=== PATIENT | male | born 1960 | race Caucasian/White ===

== ENCOUNTER 2018-03-25 06:14 | Observation (INO) | payer BC ==
[2018-03-25] MEDS ORDERED: Diphtheria,Pertussis(Acell),Tetanus Vaccine 0.5 ML Syringe IM ONE (06:23)
[2018-03-25] MEDS ORDERED: Sodium Chloride 0.9% 1,000 ML IV ONE ×3 (06:23→09:14)
[2018-03-25] MEDS ORDERED: Bacitracin Oint 1 GM U/D Packet TOP ONE (06:23)
[2018-03-25] MEDS ORDERED: Sodium Chloride 0.9% 10 ML Syringe FLUSH PRN (06:24)
[2018-03-25] MEDS ORDERED: Sodium Chloride 0.9% 2.5 ML Syringe FLUSH PRN (06:24)
--- NOTE | 2018-03-25 06:34 | EDM.PDOC ---
ED HPI GENERAL MEDICAL PROBLEM - General Stated Complaint: INTOXICATED, MULTIPLE LACERATIONS Time Seen by Provider: 03/25/18 06:22 - History of Present Illness INITIAL COMMENTS - FREE TEXT/NARRATIVE: HISTORY AND PHYSICAL: History of present illness: Patient is a 57-year-old male who denies any pre-existing medical problems but does to admit to drinking several times a week and drinking more heavily this evening and arrives via EMS after a fall on the sidewalk and being found outside. The patient says he doesn't recall how he fell and EMS and police reported to us that he was found on a sidewalk outside of his home. The patient has no recall of the events but says he did drink more than he usually does this evening. He has no complaints of any head pain extremity complaints chest pain shortness of breath abdominal pain nausea or vomiting. He has no neck or back pain. The patient denies any headache pain and says he does occasionally smoke pot but doesn't use any other street drugs. The police state that they do not feel he was outside for long as they frequently do trips in the area in which he was found and the patient is also unsure of how long he has been outside. Patient does answer simple questions and follow commands but is not very talkative. Patient arrives in a c-collar and backboard. More complete account of car's events is unavailable as the patient has no recall but he states that he has no active systemic problems or medical issues. Review of systems: As per history of present illness and below otherwise all systems reviewed and negative. Past medical history: As per history of present illness and as reviewed below otherwise noncontributory. Surgical history: As per history of present illness and as reviewed below otherwise noncontributory. Social history: No reported history of drug or alcohol abuse. Family history: As per history of present illness and as reviewed below otherwise noncontributory. Physical exam: General: Well-developed well-nourished man who is nontoxic and vital signs are noted by me. His trunk is warm but his hands and forearms bilateral legs and feet are very cold to touch and his clothes are also wet. He is moving all extremities and follows commands and is maintaining his airway. There is a smell of alcohol on his breath. Throughout the course of my exam the c-collar was maintained with the backboard was removed. It was noted by nursing during the removal of the patient's clothing that there was urine soaking his pants. HEENT: normocephalic, there are no palpable scalp deformities but there is an abrasion/in constitution appreciated at the left occipital parietal area without laceration and no tenderness in this region, pupils reactive, EOMs intact, negative for conjunctival pallor or scleral icterus, mucous membranes moist, throat clear, neck supple, nontender, trachea midline. There are no midline step-offs tenderness defects of the cervical spine. There is some clotted nasal blood but no hemoseptum and there is soft tissue swelling and a contusion/abrasion/superficial laceration at the left eyebrow area. There are no palpable bony deformities of the facial bones or tenderness. The nose is stable and there is no bony deformity and there are scattered small abrasions seen at the nasal bridge and bilateral nasal alar. TM on the right is within normal limits and the TM on the left is very dulled and darkened in color but there is no fluid noted and it is not at hemotympanum, there is no kumar sign noted in this region. Throughout the course of my exam there is no facial bone tenderness and teeth and bite are intact. Lungs: Clear to auscultation, breath sounds equal bilaterally, chest nontender. There is no evidence of any abrasions contusions seen on the chest wall Heart: S1S2, regular, rate and rhythm no overt murmurs Abdomen: Soft, nondistended, nontender. Negative for masses or hepatosplenomegaly. Hypoactive bowel sounds, there is no soft tissue evidence of any trauma such as ecchymosis abrasions or contusions. Pelvis: Stable nontender. No hip tenderness Genitourinary: Normal male on gross inspection without any evidence of soft tissue swellings contusions or blood at the urethral meatus Rectal: Deferred. Extremities the patient has full range of motion of all extremities without any tenderness defects or deformities. At the left elbow over the olecranon there is soft tissue swelling and a contusion/superficial laceration seen with macerated tissue but no active bleeding. Bilateral knees have skin discoloration consistent with some trauma but there is no abrasions lacerations or skin breaks and there is no palpable bony deformity soft tissue swellings or joint effusions. There is no tenderness of the lower extremities. The lower extremities and bilateral hands are cold to touch.Neurovascular unremarkable. Neuro: Awake, alert, peaking was slightly slurred voice but is answering questions and cooperative. Motor and sensory unremarkable throughout. Exam nonfocal. Back: There are no midline step-offs tenderness or defects of the thoracic or lumbar spine no posterior rib or posterior pelvis tenderness and no visible evidence of any soft tissue injuries Diagnostics: CBC CMP INR EtOH lipase CPK magnesium UA one view chest x-ray left elbow x-ray CT scan of the head C-spine and facial bones Therapeutics: IV fluids Tdap, local wound care with cleansing and bacitracin, zofran, Protonix , external warming measures Please note that the patient was taken for imaging after initial evaluation was performed and CT scan has called to inform us that he has had copious amount of vomiting of food and liquid. Zofran and Protonix will be ordered 0700: Case is endorsed to Dr Kim to follow up on the testing and dispo the patient. At this point the patient does not have any family members here nor does he identify anybody here locally as next of kin. We will continue to have nursing inquiring to see if he has any family that can be contacted here locally. Impression: Fall with facial injury, left elbow contusion, scalp contusion, alcohol intoxication, cold exposure of unknown period of time Definitive disposition and diagnosis as appropriate pending reevaluation and review of above. This addendum is being dictated at [address] Kim has told me that she reviewed all CT scans and admitted the patient for observation with Dr. Boo. - Related Data Allergies Allergy/AdvReac Type Severity Reaction Status Date / Time No Known Allergies Allergy Verified 03/25/18 06:33 Home Meds: Home Meds . [No Known Home Meds] 03/25/18 [History] ED ROS GENERAL - Review of Systems Review Of Systems: ROS reveals no pertinent complaints other than HPI. ED EXAM, GENERAL - Physical Exam Exam: See Below (See dictation) Course - Vital Signs Last Recorded V/S: Last Vital Signs Temp 36.8 C 03/25/18 16:00 Pulse 65 03/25/18 16:00 Resp 14 03/25/18 16:00 BP 119/62 03/25/18 16:00 Pulse Ox 100 03/25/18 16:00 - Orders/Labs/Meds Orders: Active Orders 24 hr Category Date Time Status Cardiac Monitoring [RC] . DIRECTED Care 03/25/18 06:22 Active Communication Order [RC] STAT Care 03/25/18 06:24 Active Oxygen Therapy, ED [RC] ASDIRECTED Care 03/25/18 06:22 Active Pulse Oximetry [RC] ASDIRECTED Care 03/25/18 06:22 Active Cervical Spine wo Cont [CT] Stat Exams 03/25/18 06:23 Taken Chest 1V Frontal [CR] Stat Exams 03/25/18 06:23 Taken Elbow 2V Lt [CR] Stat Exams 03/25/18 06:24 Taken Head wo Cont [CT] Stat Exams 03/25/18 06:23 Taken Max Facial Sinus wo Cont [CT] Stat Exams 03/25/18 06:23 Taken Saline Lock Insert [OM.PC] Stat Oth 03/25/18 06:22 Ordered Labs: Laboratory Tests 03/25/18 03/25/18 03/25/18 Range/Units 06:16 06:16 06:16 WBC 12.59 H (4.0-11.0) K/uL RBC 4.80 (4.50-5.90) M/uL Hgb 15.0 (13.0-17.0) g/dL Hct 43.0 (38.0-50.0) % MCV 89.6 (80.0-98.0) fL MCH 31.3 (27.0-32.0) pg MCHC 34.9 (31.0-37.0) g/dL RDW Std Deviation 44.5 (28.0-62.0) fl RDW Coeff of Nicolás 14 (11.0-15.0) % Plt Count 231 (150-400) K/uL MPV 9.70 (7.40-12.00) fL Neut % (Auto) 68.0 (48.0-80.0) % Lymph % (Auto) 28.5 (16.0-40.0) % Elmore % (Auto) 2.9 (0.0-15.0) % Eos % (Auto) 0.4 (0.0-7.0) % Baso % (Auto) 0.2 (0.0-1.5) % Neut # (Auto) 8.6 H (1.4-5.7) K/uL Lymph # (Auto) 3.6 H (0.6-2.4) K/uL Elmore # (Auto) 0.4 (0.0-0.8) K/uL Eos # (Auto) 0.1 (0.0-0.7) K/uL Baso # (Auto) 0.0 (0.0-0.1) K/uL Nucleated RBC % 0.0 /100WBC Nucleated RBCs # 0 K/uL INR 0.98 Sodium 145 (136-148) mmol/L Potassium 3.9 (3.5-5.1) mmol/L Chloride 105 (98-107) mmol/L Carbon Dioxide 29.3 (21.0-32.0) mmol/L BUN 19 H (7.0-18.0) mg/dL Creatinine 0.9 (0.8-1.3) mg/dL Est Cr Clr Drug Dosing 94.63 mL/min Estimated GFR (MDRD) > 60.0 ml/min Glucose 145 H (74-106) mg/dL POC Glucose (60-110) mg/dL Calcium 8.7 (8.5-10.1) mg/dL Magnesium 2.5 H (1.8-2.4) mg/dL Total Bilirubin 0.2 (0.2-1.0) mg/dL AST 62 H (15-37) IU/L ALT 38 (14-63) IU/L Alkaline Phosphatase 53 (46-116) U/L Creatine Kinase 436 H (26-308) U/L Total Protein 7.9 (6.4-8.2) g/dL Albumin 4.4 (3.4-5.0) g/dL Globulin 3.5 (2.0-3.5) g/dL Albumin/Globulin Ratio 1.3 (1.3-2.8) Lipase 240 (73-393) U/L Ethyl Alcohol 294 mg/dL 03/25/18 Range/Units 06:24 WBC (4.0-11.0) K/uL RBC (4.50-5.90) M/uL Hgb (13.0-17.0) g/dL Hct (38.0-50.0) % MCV (80.0-98.0) fL MCH (27.0-32.0) pg MCHC (31.0-37.0) g/dL RDW Std Deviation (28.0-62.0) fl RDW Coeff of Nicolás (11.0-15.0) % Plt Count (150-400) K/uL MPV (7.40-12.00) fL Neut % (Auto) (48.0-80.0) % Lymph % (Auto) (16.0-40.0) % Elmore % (Auto) (0.0-15.0) % Eos % (Auto) (0.0-7.0) % Baso % (Auto) (0.0-1.5) % Neut # (Auto) (1.4-5.7) K/uL Lymph # (Auto) (0.6-2.4) K/uL Elmore # (Auto) (0.0-0.8) K/uL Eos # (Auto) (0.0-0.7) K/uL Baso # (Auto) (0.0-0.1) K/uL Nucleated RBC % /100WBC Nucleated RBCs # K/uL INR Sodium (136-148) mmol/L Potassium (3.5-5.1) mmol/L Chloride (98-107) mmol/L Carbon Dioxide (21.0-32.0) mmol/L BUN (7.0-18.0) mg/dL Creatinine (0.8-1.3) mg/dL Est Cr Clr Drug Dosing mL/min Estimated GFR (MDRD) ml/min Glucose (74-106) mg/dL POC Glucose 123 H (60-110) mg/dL Calcium (8.5-10.1) mg/dL Magnesium (1.8-2.4) mg/dL Total Bilirubin (0.2-1.0) mg/dL AST (15-37) IU/L ALT (14-63) IU/L Alkaline Phosphatase (46-116) U/L Creatine Kinase (26-308) U/L Total Protein (6.4-8.2) g/dL Albumin (3.4-5.0) g/dL Globulin (2.0-3.5) g/dL Albumin/Globulin Ratio (1.3-2.8) Lipase (73-393) U/L Ethyl Alcohol mg/dL Meds: Medications Discontinued Medications Generic Name Dose Route Start Last Admin Trade Name Freq PRN Reason Stop Dose Admin Acetaminophen 650 mg 03/25/18 11:31 Tylenol PO Q4H PRN Pain (Mild 1-3)/fever Bacitracin 2 dose 03/25/18 06:23 03/25/18 07:29 Bacitracin Oint 1 Gm TOP 03/25/18 06:24 2 dose ONETIME ONE Administration Diphtheria/Tetanus/Acell Pertussis 0.5 ml 03/25/18 06:23 03/25/18 07:22 Adacel IM 03/25/18 06:24 0.5 ml .ONCE ONE Administration Docusate Sodium 100 mg 03/25/18 11:31 Colace PO BID PRN Constipation Enoxaparin Sodium 40 mg 03/25/18 11:45 03/25/18 12:16 Lovenox SUBCUT 40 mg Q24H ARISTIDES Administration Folic Acid 1 mg 03/25/18 11:45 03/25/18 12:16 Folic Acid PO 1 mg DAILY ARISTIDES Administration Sodium Chloride 1,000 mls @ 999 mls/hr 03/25/18 06:23 03/25/18 07:02 Normal Saline IV 03/25/18 07:23 999 mls/hr STAT ONE Administration Sodium Chloride 1,000 mls @ 999 mls/hr 03/25/18 07:01 03/25/18 07:05 Normal Saline IV 03/25/18 08:01 999 mls/hr .Bolus ONE Administration Sodium Chloride 1,000 mls @ 999 mls/hr 03/25/18 09:14 03/25/18 09:17 Normal Saline IV 03/25/18 10:14 999 mls/hr .Bolus ONE Administration Sodium Chloride 1,000 mls @ 200 mls/hr 03/25/18 11:45 03/25/18 12:05 Normal Saline IV 200 mls/hr ASDIRECTED ARISTIDES Administration Ibuprofen 600 mg 03/25/18 11:31 Motrin PO Q6H PRN Pain (mild 1-3) Lorazepam 0 mg 03/25/18 11:39 03/25/18 13:04 Ativan IVPUSH 03/25/18 11:40 Not Given ONETIME ONE Protocol Lorazepam 0 mg 03/25/18 13:02 Ativan IVPUSH Q4H PRN Withdrawal Symptoms Protocol Ondansetron HCl 4 mg 03/25/18 06:46 03/25/18 07:08 Zofran IVPUSH 03/25/18 06:47 4 mg ONETIME ONE Administration Ondansetron HCl 4 mg 03/25/18 11:31 Zofran Odt PO Q4H PRN nausea, able to take PO Ondansetron HCl 4 mg 03/25/18 11:31 Zofran IVPUSH Q4H PRN Nausea Pantoprazole Sodium 80 mg 03/25/18 06:46 03/25/18 07:13 Protonix Iv IVPUSH 03/25/18 06:47 80 mg .BOLUS ONE Administration Polyethylene Glycol 17 gm 03/25/18 11:31 Miralax PO DAILY PRN Constipation Sodium Chloride 10 ml 03/25/18 06:24 Saline Flush FLUSH ASDIRECTED PRN Keep Vein Open Sodium Chloride 2.5 ml 03/25/18 06:24 Saline Flush FLUSH ASDIRECTED PRN Keep Vein Open Thiamine HCl 100 mg 03/25/18 11:45 03/25/18 13:03 Vitamin B-1 PO Not Given DAILY ARISTIDES Thiamine HCl 100 mg 03/25/18 12:53 03/25/18 13:05 Vitamin B-1 IM 03/25/18 12:54 Not Given ONETIME ONE Thiamine HCl 100 mg 03/25/18 13:00 03/25/18 13:56 Vitamin B-1 IV 100 mg DAILY ARISTIDES Administration Departure - Departure Time of Disposition: 09:30 Disposition: Refer to Observation Condition: Good Clinical Impression: Alcohol intoxication Qualifiers: Complication of substance-induced condition: with unspecified complication Qualified Code(s): F10.929 - Alcohol use, unspecified with intoxication, unspecified Fall Qualifiers: Encounter type: initial encounter Qualified Code(s): W19.XXXA - Unspecified fall, initial encounter Exposure to environmental cold Qualifiers: Encounter type: initial encounter Qualified Code(s): T69.9XXA - Effect of reduced temperature, unspecified, initial encounter Facial trauma Qualifiers: Encounter type: initial encounter Qualified Code(s): S09.93XA - Unspecified injury of face, initial encounter Closed head injury Qualifiers: Encounter type: initial encounter Qualified Code(s): S09.90XA - Unspecified injury of head, initial encounter Injury of elbow Qualifiers: Encounter type: initial encounter Laterality: left Qualified Code(s): S59.902A - Unspecified injury of left elbow, initial encounter - Discharge Information - My Orders Last 24 Hours: My Active Orders 03/25/18 06:22 Cardiac Monitoring [RC] . DIRECTED Oxygen Therapy, ED [RC] ASDIRECTED Pulse Oximetry [RC] ASDIRECTED Saline Lock Insert [OM.PC] Stat 03/25/18 06:23 Cervical Spine wo Cont [CT] Stat Chest 1V Frontal [CR] Stat Head wo Cont [CT] Stat Max Facial Sinus wo Cont [CT] Stat 03/25/18 06:24 Communication Order [RC] STAT Elbow 2V Lt [CR] Stat - Assessment/Plan Last 24 Hours: My Active Orders 03/25/18 06:22 Cardiac Monitoring [RC] . DIRECTED Oxygen Therapy, ED [RC] ASDIRECTED Pulse Oximetry [RC] ASDIRECTED Saline Lock Insert [OM.PC] Stat 03/25/18 06:23 Cervical Spine wo Cont [CT] Stat Chest 1V Frontal [CR] Stat Head wo Cont [CT] Stat Max Facial Sinus wo Cont [CT] Stat 03/25/18 06:24 Communication Order [RC] STAT Elbow 2V Lt [CR] Stat
[2018-03-25] MEDS ORDERED: Ondansetron 4 MG/2 ML SDV IVPUSH ONE (06:46)
[2018-03-25] MEDS ORDERED: Pantoprazole 40 MG Vial IVPUSH ONE (06:46)
[2018-03-25 06:51] LABS: CHLORIDE,CL 105 mmol/L (98-107); SODIUM,NA 145 mmol/L (136-148)
[2018-03-25] MEDS ORDERED: Acetaminophen 325 MG Tab PO PRN (11:31)
[2018-03-25] MEDS ORDERED: Ondansetron 4 MG Tab.DIS PO PRN (11:31)
[2018-03-25] MEDS ORDERED: Docusate Sodium 100 MG Cap PO PRN (11:31)
[2018-03-25] MEDS ORDERED: Ibuprofen 600 MG Tab PO PRN (11:31)
[2018-03-25] MEDS ORDERED: Ondansetron 4 MG/2 ML SDV IVPUSH PRN (11:31)
[2018-03-25] MEDS ORDERED: Polyethylene Glycol 3350 Powder 17 GM Packet PO PRN (11:31)
[2018-03-25] MEDS ORDERED: LORazepam 2 MG/ML SDV IVPUSH ONE (11:39)
[2018-03-25] MEDS ORDERED: Folic Acid 1 MG Tab PO SCH (11:45)
[2018-03-25] MEDS ORDERED: Enoxaparin 40 MG/0.4 ML Syringe SUBCUT SCH (11:45)
[2018-03-25] MEDS ORDERED: Thiamine 100 MG Tab PO SCH (11:45)
[2018-03-25] MEDS ORDERED: Sodium Chloride 0.9% 1,000 ML IV SCH (11:45)
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
[2018-03-25] MEDS ORDERED: Thiamine 200 MG/2 ML MDV IM ONE (12:53)
[2018-03-25] MEDS ORDERED: Thiamine 200 MG/2 ML MDV IV SCH (13:00)
[2018-03-25] MEDS ORDERED: LORazepam 2 MG/ML SDV IVPUSH PRN (13:02)
--- NOTE | 2018-03-25 17:49 | PCM.DCSUM1 ---
<Michael Whitten - Last Filed: 03/25/18 17:41> Discharge Summary - Hospital Course Free Text/Narrative:: Admission date: 03/25/18 Discharge date: 03/25/18 Admission diagnosis: 1. Alcohol intoxication 2. Left leticia-orbital hematoma 3. Rhadomyolysis Discharge diagnosis: 1. Alcohol intoxication 2. Left leticia-orbital hematoma 3. Rhabdomyolysis Procedures: none Consults: none Hospital course: Michel Link is a 57 y/o male who was brought to the ER by police after he was found laying on the sidewalk on [facility]. The patient was admitted for alcohol intoxication. Imaging was performed which did not show any acute fractures to skull or neck. He was also noted to have a creatine kinase level in the 400's in addition to a left leticia-orbital hematoma. His pain was controlled and he was aggressively hydrated. During this hospitalization, withdrawal symptoms were monitored using CIWA protocol. He did not endorse any alcohol withdrawal symptoms during this hospitalization. He was advised to abstain from alcohol and any mood altering substances. Follow-up: 1. Follow-up with Dr. Baker in 1-2 weeks. - Discharge Data Discharge Date: 03/25/18 Discharge Disposition: Home, Self-Care 01 Condition: Fair - Patient Instructions Diet: Regular Diet as Tolerated Activity: Apply Ice, As Tolerated Notify Provider of: Fever, Increased Pain, Swelling and Redness, Drainage, Nausea and/or Vomiting - Discharge Plan *PRESCRIPTION DRUG MONITORING PROGRAM REVIEWED*: Not Applicable *COPY OF PRESCRIPTION DRUG MONITORING REPORT IN PATIENT MICHAEL: Not Applicable Home Medications: Home Meds . [No Known Home Meds] 03/25/18 [History] Patient Handouts: Alcohol Intoxication, [id number], Hypothermia Prevention Forms: ED Department Discharge Referrals: Michael Whitten MD [Resident] - (Follow-up in 1-2 weeks.) PCP,None [Primary Care Provider] - - Discharge Summary/Plan Comment DC Time >30 min.: No - Patient Data Vitals - Most Recent: Last Vital Signs Temp 36.8 C 03/25/18 16:00 Pulse 65 03/25/18 16:00 Resp 14 03/25/18 16:00 BP 119/62 03/25/18 16:00 Pulse Ox 100 03/25/18 16:00 Weight - Most Recent: 87.5 kg I&O - Last 24 hours: Intake & Output 03/25/18 03/25/18 03/25/18 06:59 14:59 22:59 Intake Total 1656 Output Total 300 Balance 1356 Lab Results - Last 24 hrs: Laboratory Results - last 24 hr 03/25/18 03/25/18 03/25/18 Range/Units 06:16 06:16 06:16 WBC 12.59 H (4.0-11.0) K/uL RBC 4.80 (4.50-5.90) M/uL Hgb 15.0 (13.0-17.0) g/dL Hct 43.0 (38.0-50.0) % MCV 89.6 (80.0-98.0) fL MCH 31.3 (27.0-32.0) pg MCHC 34.9 (31.0-37.0) g/dL RDW Std Deviation 44.5 (28.0-62.0) fl RDW Coeff of Nicolás 14 (11.0-15.0) % Plt Count 231 (150-400) K/uL MPV 9.70 (7.40-12.00) fL Neut % (Auto) 68.0 (48.0-80.0) % Lymph % (Auto) 28.5 (16.0-40.0) % [place] % (Auto) 2.9 (0.0-15.0) % Eos % (Auto) 0.4 (0.0-7.0) % Baso % (Auto) 0.2 (0.0-1.5) % Neut # (Auto) 8.6 H (1.4-5.7) K/uL Lymph # (Auto) 3.6 H (0.6-2.4) K/uL [place] # (Auto) 0.4 (0.0-0.8) K/uL Eos # (Auto) 0.1 (0.0-0.7) K/uL Baso # (Auto) 0.0 (0.0-0.1) K/uL Nucleated RBC % 0.0 /100WBC Nucleated RBCs # 0 K/uL INR 0.98 Sodium 145 (136-148) mmol/L Potassium 3.9 (3.5-5.1) mmol/L Chloride 105 (98-107) mmol/L Carbon Dioxide 29.3 (21.0-32.0) mmol/L BUN 19 H (7.0-18.0) mg/dL Creatinine 0.9 (0.8-1.3) mg/dL Est Cr Clr Drug Dosing 94.63 mL/min Estimated GFR (MDRD) > 60.0 ml/min Glucose 145 H (74-106) mg/dL POC Glucose (60-110) mg/dL Calcium 8.7 (8.5-10.1) mg/dL Magnesium 2.5 H (1.8-2.4) mg/dL Total Bilirubin 0.2 (0.2-1.0) mg/dL AST 62 H (15-37) IU/L ALT 38 (14-63) IU/L Alkaline Phosphatase 53 (46-116) U/L Creatine Kinase 436 H (26-308) U/L Total Protein 7.9 (6.4-8.2) g/dL Albumin 4.4 (3.4-5.0) g/dL Globulin 3.5 (2.0-3.5) g/dL Albumin/Globulin Ratio 1.3 (1.3-2.8) Lipase 240 (73-393) U/L Urine Color Urine Appearance Urine pH (5.0-8.0) Ur Specific [place] (1.001-1.035) Urine Protein (NEGATIVE) mg/dL Urine Glucose (UA) (NEGATIVE) mg/dL Urine Ketones (NEGATIVE) mg/dL Urine Occult Blood (NEGATIVE) Urine Nitrite (NEGATIVE) Urine Bilirubin (NEGATIVE) Urine Urobilinogen (<2.0) EU/dL Ur Leukocyte Esterase (NEGATIVE) Urine RBC (0-2/HPF) Urine WBC (0-5/HPF) Ur Epithelial Cells (NONE-FEW) Urine Bacteria (NEGATIVE) Urine Opiates Screen (NEGATIVE) Ur Oxycodone Screen (NEGATIVE) Urine Methadone Screen (NEGATIVE) Ur Barbiturates Screen (NEGATIVE) Ur Phencyclidine Scrn (NEGATIVE) Ur Amphetamine Screen (NEGATIVE) U Methamphetamines Scrn (NEGATIVE) U Benzodiazepines Scrn (NEGATIVE) U Cocaine Metab Screen (NEGATIVE) U Marijuana (THC) Screen (NEGATIVE) Ethyl Alcohol 294 mg/dL 03/25/18 03/25/18 03/25/18 Range/Units 06:24 10:07 10:07 WBC (4.0-11.0) K/uL RBC (4.50-5.90) M/uL Hgb (13.0-17.0) g/dL Hct (38.0-50.0) % MCV (80.0-98.0) fL MCH (27.0-32.0) pg MCHC (31.0-37.0) g/dL RDW Std Deviation (28.0-62.0) fl RDW Coeff of Nicolás (11.0-15.0) % Plt Count (150-400) K/uL MPV (7.40-12.00) fL Neut % (Auto) (48.0-80.0) % Lymph % (Auto) (16.0-40.0) % [place] % (Auto) (0.0-15.0) % Eos % (Auto) (0.0-7.0) % Baso % (Auto) (0.0-1.5) % Neut # (Auto) (1.4-5.7) K/uL Lymph # (Auto) (0.6-2.4) K/uL [place] # (Auto) (0.0-0.8) K/uL Eos # (Auto) (0.0-0.7) K/uL Baso # (Auto) (0.0-0.1) K/uL Nucleated RBC % /100WBC Nucleated RBCs # K/uL INR Sodium (136-148) mmol/L Potassium (3.5-5.1) mmol/L Chloride (98-107) mmol/L Carbon Dioxide (21.0-32.0) mmol/L BUN (7.0-18.0) mg/dL Creatinine (0.8-1.3) mg/dL Est Cr Clr Drug Dosing mL/min Estimated GFR (MDRD) ml/min Glucose (74-106) mg/dL POC Glucose 123 H (60-110) mg/dL Calcium (8.5-10.1) mg/dL Magnesium (1.8-2.4) mg/dL Total Bilirubin (0.2-1.0) mg/dL AST (15-37) IU/L ALT (14-63) IU/L Alkaline Phosphatase (46-116) U/L Creatine Kinase (26-308) U/L Total Protein (6.4-8.2) g/dL Albumin (3.4-5.0) g/dL Globulin (2.0-3.5) g/dL Albumin/Globulin Ratio (1.3-2.8) Lipase (73-393) U/L Urine Color YELLOW Urine Appearance CLEAR Urine pH 5.5 (5.0-8.0) Ur Specific [place] 1.020 (1.001-1.035) Urine Protein NEGATIVE (NEGATIVE) mg/dL Urine Glucose (UA) NEGATIVE (NEGATIVE) mg/dL Urine Ketones TRACE H (NEGATIVE) mg/dL Urine Occult Blood TRACE-INTACT (NEGATIVE) Urine Nitrite NEGATIVE (NEGATIVE) Urine Bilirubin NEGATIVE (NEGATIVE) Urine Urobilinogen 0.2 (<2.0) EU/dL Ur Leukocyte Esterase NEGATIVE (NEGATIVE) Urine RBC 0-2 (0-2/HPF) Urine WBC 0-1 (0-5/HPF) Ur Epithelial Cells RARE (NONE-FEW) Urine Bacteria RARE (NEGATIVE) Urine Opiates Screen NEGATIVE (NEGATIVE) Ur Oxycodone Screen NEGATIVE (NEGATIVE) Urine Methadone Screen NEGATIVE (NEGATIVE) Ur Barbiturates Screen NEGATIVE (NEGATIVE) Ur Phencyclidine Scrn NEGATIVE (NEGATIVE) Ur Amphetamine Screen NEGATIVE (NEGATIVE) U Methamphetamines Scrn NEGATIVE (NEGATIVE) U Benzodiazepines Scrn NEGATIVE (NEGATIVE) U Cocaine Metab Screen NEGATIVE (NEGATIVE) U Marijuana (THC) Screen NEGATIVE (NEGATIVE) Ethyl Alcohol mg/dL Med Orders - Current: Current Medications Acetaminophen (Tylenol) 650 mg PO Q4H PRN PRN Reason: Pain (Mild 1-3)/fever Docusate Sodium (Colace) 100 mg PO BID PRN PRN Reason: Constipation Enoxaparin Sodium (Lovenox) 40 mg SUBCUT Q24H [facility] Last Admin: 03/25/18 12:16 Dose: 40 mg Folic Acid (Folic Acid) 1 mg PO DAILY [facility] Last Admin: 03/25/18 12:16 Dose: 1 mg Sodium Chloride (Normal Saline) 1,000 mls @ 200 mls/hr IV ASDIRECTED [facility] Last Admin: 03/25/18 12:05 Dose: 200 mls/hr Ibuprofen (Motrin) 600 mg PO Q6H PRN PRN Reason: Pain (mild 1-3) Lorazepam (Ativan) 0 mg IVPUSH Q4H PRN; Protocol PRN Reason: Withdrawal Symptoms Ondansetron HCl (Zofran Odt) 4 mg PO Q4H PRN PRN Reason: nausea, able to take PO Ondansetron HCl (Zofran) 4 mg IVPUSH Q4H PRN PRN Reason: Nausea Polyethylene Glycol (Miralax) 17 gm PO DAILY PRN PRN Reason: Constipation Sodium Chloride (Saline Flush) 10 ml FLUSH ASDIRECTED PRN PRN Reason: Keep Vein Open Sodium Chloride (Saline Flush) 2.5 ml FLUSH ASDIRECTED PRN PRN Reason: Keep Vein Open Thiamine HCl (Vitamin B-1) 100 mg IV DAILY [facility] Last Admin: 03/25/18 13:56 Dose: 100 mg Discontinued Medications Bacitracin (Bacitracin Oint 1 Gm) 2 dose TOP ONETIME ONE Stop: 03/25/18 06:24 Last Admin: 03/25/18 07:29 Dose: 2 dose Diphtheria/Tetanus/Acell Pertussis (Adacel) 0.5 ml IM .ONCE ONE Stop: 03/25/18 06:24 Last Admin: 03/25/18 07:22 Dose: 0.5 ml Sodium Chloride (Normal Saline) 1,000 mls @ 999 mls/hr IV STAT ONE Stop: 03/25/18 07:23 Last Admin: 03/25/18 07:02 Dose: 999 mls/hr Sodium Chloride (Normal Saline) 1,000 mls @ 999 mls/hr IV .Bolus ONE Stop: 03/25/18 08:01 Last Admin: 03/25/18 07:05 Dose: 999 mls/hr Sodium Chloride (Normal Saline) 1,000 mls @ 999 mls/hr IV .Bolus ONE Stop: 03/25/18 10:14 Last Admin: 03/25/18 09:17 Dose: 999 mls/hr Lorazepam (Ativan) 0 mg IVPUSH ONETIME ONE; Protocol Stop: 03/25/18 11:40 Last Admin: 03/25/18 13:04 Dose: Not Given Ondansetron HCl (Zofran) 4 mg IVPUSH ONETIME ONE Stop: 03/25/18 06:47 Last Admin: 03/25/18 07:08 Dose: 4 mg Pantoprazole Sodium (Protonix Iv) 80 mg IVPUSH .BOLUS ONE Stop: 03/25/18 06:47 Last Admin: 03/25/18 07:13 Dose: 80 mg Thiamine HCl (Vitamin B-1) 100 mg PO DAILY [facility] Last Admin: 03/25/18 13:03 Dose: Not Given Thiamine HCl (Vitamin B-1) 100 mg IM ONETIME ONE Stop: 03/25/18 12:54 Last Admin: 03/25/18 13:05 Dose: Not Given <Charlie Hand - Last Filed: 03/28/18 14:57> - Patient Data Vitals - Most Recent: Last Vital Signs Temp 36.8 C 03/25/18 16:00 Pulse 65 03/25/18 16:00 Resp 14 03/25/18 16:00 BP 119/62 03/25/18 16:00 Pulse Ox 100 03/25/18 16:00 Med Orders - Current: Current Medications Discontinued Medications Acetaminophen (Tylenol) 650 mg PO Q4H PRN PRN Reason: Pain (Mild 1-3)/fever Bacitracin (Bacitracin Oint 1 Gm) 2 dose TOP ONETIME ONE Stop: 03/25/18 06:24 Last Admin: 03/25/18 07:29 Dose: 2 dose Diphtheria/Tetanus/Acell Pertussis (Adacel) 0.5 ml IM .ONCE ONE Stop: 03/25/18 06:24 Last Admin: 03/25/18 07:22 Dose: 0.5 ml Docusate Sodium (Colace) 100 mg PO BID PRN PRN Reason: Constipation Enoxaparin Sodium (Lovenox) 40 mg SUBCUT Q24H [facility] Last Admin: 03/25/18 12:16 Dose: 40 mg Folic Acid (Folic Acid) 1 mg PO DAILY [facility] Last Admin: 03/25/18 12:16 Dose: 1 mg Sodium Chloride (Normal Saline) 1,000 mls @ 999 mls/hr IV STAT ONE Stop: 03/25/18 07:23 Last Admin: 03/25/18 07:02 Dose: 999 mls/hr Sodium Chloride (Normal Saline) 1,000 mls @ 999 mls/hr IV .Bolus ONE Stop: 03/25/18 08:01 Last Admin: 03/25/18 07:05 Dose: 999 mls/hr Sodium Chloride (Normal Saline) 1,000 mls @ 999 mls/hr IV .Bolus ONE Stop: 03/25/18 10:14 Last Admin: 03/25/18 09:17 Dose: 999 mls/hr Sodium Chloride (Normal Saline) 1,000 mls @ 200 mls/hr IV ASDIRECTED [facility] Last Admin: 03/25/18 12:05 Dose: 200 mls/hr Ibuprofen (Motrin) 600 mg PO Q6H PRN PRN Reason: Pain (mild 1-3) Lorazepam (Ativan) 0 mg IVPUSH ONETIME ONE; Protocol Stop: 03/25/18 11:40 Last Admin: 03/25/18 13:04 Dose: Not Given Lorazepam (Ativan) 0 mg IVPUSH Q4H PRN; Protocol PRN Reason: Withdrawal Symptoms Ondansetron HCl (Zofran) 4 mg IVPUSH ONETIME ONE Stop: 03/25/18 06:47 Last Admin: 03/25/18 07:08 Dose: 4 mg Ondansetron HCl (Zofran Odt) 4 mg PO Q4H PRN PRN Reason: nausea, able to take PO Ondansetron HCl (Zofran) 4 mg IVPUSH Q4H PRN PRN Reason: Nausea Pantoprazole Sodium (Protonix Iv) 80 mg IVPUSH .BOLUS ONE Stop: 03/25/18 06:47 Last Admin: 03/25/18 07:13 Dose: 80 mg Polyethylene Glycol (Miralax) 17 gm PO DAILY PRN PRN Reason: Constipation Sodium Chloride (Saline Flush) 10 ml FLUSH ASDIRECTED PRN PRN Reason: Keep Vein Open Sodium Chloride (Saline Flush) 2.5 ml FLUSH ASDIRECTED PRN PRN Reason: Keep Vein Open Thiamine HCl (Vitamin B-1) 100 mg PO DAILY [facility] Last Admin: 03/25/18 13:03 Dose: Not Given Thiamine HCl (Vitamin B-1) 100 mg IM ONETIME ONE Stop: 03/25/18 12:54 Last Admin: 03/25/18 13:05 Dose: Not Given Thiamine HCl (Vitamin B-1) 100 mg IV DAILY [facility] Last Admin: 03/25/18 13:56 Dose: 100 mg - Free Text/Narrative Note: I have examined the patient. I have discussed findings and treatment plan with the resident. I agree with the assessment and plan in the following resident's note.
--- NOTE | 2018-03-26 15:20 | CT ---
EXAM DATE: 03/25/18 PATIENT'S AGE: 57 Patient: DIXIE GANN Facility: [place], [place] Site . Site : 1960 Study: CT Spine Cervical -03/25/2018 6:54:46 AM Ordering Physician: Doctor Alvarado Final Report: HISTORY: Fall. TECHNIQUE: Noncontrast CT cervical spine. COMPARISON: No prior. FINDINGS: There is no acute cervical fracture. 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 No abnormal prevertebral soft tissue swelling. - At C2-C3, no canal or foraminal stenosis. At C3-C4, mild loss of disc height. Disc-osteophyte complex with mild thecal sac effacement. Mild foraminal narrowing. At C4-C5, mild loss of disc height. Disc-osteophyte complex. Mild ventral thecal sac effacement. Mild right foraminal narrowing. At C5-C6, mild loss of disc height. Disc-osteophyte complex with mild ventral thecal sac effacement. Severe right foraminal stenosis. Mild left foraminal stenosis. At C6-C7, loss of disc height with disc-osteophyte complex. Mild ventral thecal sac effacement. Severe left foraminal stenosis. Right neural foramina patent. At C7-T1, loss of disc height. Disc-osteophyte complex with mild ventral thecal sac effacement. Left is mildly stenotic. IMPRESSION: 1. No acute cervical fracture or cervical malalignment. 2. Degenerative changes. Dictated by Mario Boggs MD @ 03/25/2018 7:08:37 AM Please note that all CT scans at this facility use dose modulation, iterative reconstruction, and/or weight-based dosing when appropriate to reduce radiation dose to as low as reasonably achievable. Dictated by: Mario Boggs MD @ 03/25/2018 07:08:43 (Electronic Signature) Report Signed by Proxy. [facility]
--- NOTE | 2018-03-26 15:21 | CT ---
EXAM DATE: 03/25/18 PATIENT'S AGE: 57 Patient: DIXIE GANN Facility: [place], [place] Site . Site : 1960 Study: CT Head -03/25/2018 6:55:02 AM Ordering Physician: Doctor Alvarado Final Report: HISTORY: Fall. TECHNIQUE: Noncontrast head CT. COMPARISON: No prior. FINDINGS: Prior right MCA distribution aneurysm coiling. There is no acute intracranial hemorrhage. No extra-axial hematoma. No acute ischemic infarct. No mass effect or midline shift. No hydrocephalus. No acute loss of porras-white differentiation. Mastoid air cells are clear. The paranasal sinuses are clear. Small amount of gas within the superior aspect of the left orbit. Periorbital soft tissue swelling on the left. Please see facial bone CT report for further details. Mild soft tissue swelling in the left parietal region. No underlying acute parietal bone fracture. IMPRESSION: 1. No acute intracranial injury or disease. 2. Prior right MCA distribution aneurysm coiling. 3. Periorbital soft tissue swelling on the left. Small amount of left orbital emphysema superiorly. Please see facial bone CT report further details. 4. Mild extracranial soft tissue swelling in the left parietal region. No underlying parietal bone fracture. Dictated by Mario Boggs MD @ 03/25/2018 7:12:33 AM Please note that all CT scans at this facility use dose modulation, iterative reconstruction, and/or weight-based dosing when appropriate to reduce radiation dose to as low as reasonably achievable. Dictated by: Mario Boggs MD @ 03/25/2018 07:12:39 (Electronic Signature) Report Signed by Proxy. REYNA
--- NOTE | 2018-03-26 15:22 | CR ---
EXAM DATE: 03/25/18 PATIENT'S AGE: 57 Patient: DIXIE GANN Facility: [place], [place] Site . Site : 1960 Study: XRay Extremity -03/25/2018 6:55:19 AM Ordering Physician: Doctor Alvarado Final Report: HISTORY: Fall. TECHNIQUE: Two views of the left elbow. COMPARISON: No prior. FINDINGS: There is soft tissue swelling in the olecranon region with a small amount of soft tissue gas. This may relate to recent soft tissue injury. There is no acute fracture. No elbow joint malalignment. No radiopaque foreign body. IMPRESSION: 1. Soft tissue swelling along with a small of soft tissue gas in the olecranon region which likely relates to recent trauma. 2. No acute fracture or malalignment. Dictated by Mario Boggs MD @ 03/25/2018 7:14:05 AM Dictated by: Mario Boggs MD @ 03/25/2018 07:14:13 (Electronic Signature) Report Signed by Proxy. REYNA
--- NOTE | 2018-03-26 15:23 | CR ---
EXAM DATE: 03/25/18 PATIENT'S AGE: 57 Patient: DIXIE GANN Facility: [place], [place] Site . Site : 1960 Study: XRay Chest -03/25/2018 6:55:34 AM Ordering Physician: Doctor Alvarado Final Report: HISTORY: Fall. TECHNIQUE: One view chest. COMPARISON: No prior. FINDINGS: No infiltrate or pulmonary edema. No pneumothorax or pleural effusion. Cardiac size is within normal limits accounting for technique. No acute bony abnormality. IMPRESSION: No acute disease. Dictated by Mario Boggs MD @ 03/25/2018 7:15:08 AM Dictated by: Mario Boggs MD @ 03/25/2018 07:15:15 (Electronic Signature) Report Signed by Proxy. [facility]
--- NOTE | 2018-03-26 15:24 | CT ---
EXAM DATE: 03/25/18 PATIENT'S AGE: 57 Patient: DIXIE GANN Facility: [place], [place] Site . Site : 1960 Study: CT Facial -03/25/2018 6:56:39 AM Ordering Physician: Doctor Alvarado Final Report: HISTORY: Fall. TECHNIQUE: Noncontrast CT of the facial bones. COMPARISON: No prior. FINDINGS: There is periorbital soft tissue swelling on the left. There is a small amount of gas within the soft tissues in the periorbital region. These findings likely relate to recent trauma. A few locules of gas are present within the superior aspect of the left orbit as seen on coronal images #36 and 37 of series 207 for example. There is no retrobulbar hematoma or postseptal soft tissue swelling on the left. There is mild deformity of the inferior orbital wall on the left as seen on coronal image #35 series 207. This likely reflects sequelae of more remote fracture. There is no definite cortical defect or soft tissue swelling in that region. Medial orbital wall on the left is intact. No right orbital fracture. No acute nasal bone fracture. The frontal bones are intact. No maxillary or mandibular fracture. Mucosal thickening involving the inferior aspect of the right maxillary sinus. IMPRESSION: 1. Periorbital soft tissue swelling on the left with a small amount of soft tissue emphysema, likely related to recent trauma. 2. No postseptal soft tissue swelling or retrobulbar hematoma. 3. Small amount of intraorbital gas within the superior aspect of the left orbit of uncertain origin. 4. Slight deformity of the inferior orbital wall on the left compatible with a prior inferior orbital wall fracture. As no discrete cortical break is apparent and there is no soft tissue swelling in that specific region, the finding may relate to a more remote orbital wall fracture. There is no rectus muscle entrapment. Dictated by Mario Boggs MD @ 03/25/2018 7:21:47 AM Please note that all CT scans at this facility use dose modulation, iterative reconstruction, and/or weight-based dosing when appropriate to reduce radiation dose to as low as reasonably achievable. Dictated by: Mario Boggs MD @ 03/25/2018 07:21:53 (Electronic Signature) Report Signed by Proxy. [facility]
== END 2018-03-25 17:45 | disposition home or self-care (01) ==
LOC: MW.ED 06:14 → MW.MS 09:00 → MW.ED 09:27
PROVIDERS: ADMIT Internal Medicine; ATTEND Internal Medicine
DX: F10.129 Alcohol abuse with intoxication, unspecified (principal); S05.12XA Contusion of eyeball and orbital tissues, left eye, initial encounter; T79.6XXA Traumatic ischemia of muscle, initial encounter; Y90.8 Blood alcohol level of 240 mg/100 ml or more
CPT/HCPCS: 36415; 70450; 70486; 71045; 72125; 73070; 80053; 80305; 81001; 82550; 82962; 83690; 83735; 85025; 85610; 90715; 96361; 96372; 96374; 96375; 99285; A9270; C9113; G0378; G0480; J1650; J2405; J3411; J7040

== ENCOUNTER 2018-12-01 12:08 | Emergency (ER) | payer BC ==
--- NOTE | 2018-12-01 12:10 | EDM.PDOC ---
ED HPI GENERAL MEDICAL PROBLEM - General Chief Complaint: Lower Extremity Injury/Pain Stated Complaint: ANKLE INJURY Time Seen by Provider: 12/01/18 12:09 Source of Information: Reports: Patient History Limitations: Reports: No Limitations - History of Present Illness INITIAL COMMENTS - FREE TEXT/NARRATIVE: HISTORY AND PHYSICAL: History of present illness: Patient is a 58-year-old male who presents to the emergency room today with complaints of bilateral ankle pain. Patient was participating and a half marathon when he started to develop cramping in his calves and lower ankles. He states he had been running for some time and was near completion of the marathon when he felt a snapping sensation to the lateral ankles. He states he fell to the ground and was unable to stand up or bear weight. He does have abrasion to bilateral knees. He denies hitting his head or having any loss of consciousness. No previous injury or surgeries of his lower extremities. Dates he does have some problems with his Achilles tendon but has never been formally diagnosed with any tears or injuries. Patient reports that he was not able to ambulate after the fall and he was assisted to the emergency room. Patient denies any fever, chills, headache, change in vision, syncope or near syncope. Denies any chest pain, back pain, shortness of breath or cough. Denies any GI or symptoms. Patient had been eating and drinking appropriately. Review of systems: As per history of present illness and below otherwise all systems reviewed and negative. Past medical history: As per history of present illness and as reviewed below otherwise noncontributory. Surgical history: As per history of present illness and as reviewed below otherwise noncontributory. Social history: See social history for further information Family history: As per history of present illness and as reviewed below otherwise noncontributory. Physical exam: General: Well-developed and well-nourished 58-year-old male. Alert and oriented. Nontoxic appearing and in no acute distress. HEENT: Atraumatic, normocephalic, pupils equal and reactive bilaterally, negative for conjunctival pallor or scleral icterus, mucous membranes moist, TMs normal bilaterally, throat clear, neck supple, nontender, trachea midline. No drooling or trismus noted. No meningeal signs. No hot potato voice noted. Lungs: Clear to auscultation, breath sounds equal bilaterally, chest nontender. Heart: S1S2, regular rate and rhythm without overt murmur Abdomen: Soft, nondistended, nontender. Negative for masses or hepatosplenomegaly. Negative for costovertebral tenderness. Pelvis: Stable nontender. Genitourinary: Deferred. Rectal: Deferred. Skin: Intact, warm, dry. No lesions or rashes noted. Extremities: Poor flexion and extension of bilateral ankles. He does have some firm tissue swelling above the calcaneus bilaterally which she states is tender with palpation. When squeezing the calf that does not cause the foot to flex and extend. Strong pedal pulses bilaterally. No foot, tib-fib, knee or hip pain. He otherwise moves all extremities per self without difficulty or deficits. Neurovascular unremarkable. Neuro: Awake, alert, oriented. Cranial nerves II through XII unremarkable. Cerebellum unremarkable. Motor and sensory unremarkable throughout. Exam nonfocal. Notes: Injury is concerning for Achilles tendon injury. He is agreeable to x-rays at this time. He is aware of the limitations of imaging that we have available at this time. X-rays show no acute fractures or dislocations. The [place] or fat pad is disrupted bilaterally. We currently do not have orthopedics on-call or available. Dr Carrizales, orthopedic provider at [facility] was consulted on this patient. He recommends that the patient be placed in posterior splints and plantar flexion bilaterally. He states the patient can follow up next week as an outpatient in either his clinic or our orthopedic clinic in [place]. He does recommend giving patient pain medication and or muscle relaxer. I did share with the patient today's findings on imaging. We discussed the need for appropriate follow-up with the orthopedic provider. Patient was placed in splints and given the option for wheelchair for assistance with ambulation. The prescribed medication was reviewed and discussed in how to appropriately take this medication. Supportive care measures were reviewed and discussed. Voices understanding and is agreeable to plan of care. Denies any further questions or concerns at this time. Diagnostics: Right ankle x-ray, left ankle x-ray Therapeutics: Posterior splint in plantar flexion bilateral, [place] Prescription: [place] Flexeril Wheelchair ([employer]) Impression: Achilles tendon injury, bilateral Plan: 1. Rest, ice, and elevate the lower extremities as able. Keep the splints on as we discussed. Limit your weight bearing as we discussed. 2. Tylenol and/or ibuprofen as needed for pain management. [place] for moderate to severe pain. This medication does cause drowsiness a do not take it will driving her needing to be functioning outside the house. Flexeril as a muscle relaxer, this also causes drowsiness a do not combine this with the [place] that has been prescribed. 3. Please follow-up with orthopedics on Monday. Return to the ED as needed and as discussed. Definitive disposition and diagnosis as appropriate pending reevaluation and review of above. Bilateral Ankle Pain Score (Numeric/FACES): 6 - Related Data Allergies Allergy/AdvReac Type Severity Reaction Status Date / Time No Known Allergies Allergy Verified 12/01/18 12:23 Home Meds: Home Meds . [No Known Home Meds] 03/25/18 [History] Past Medical History - Past Health History Medical/Surgical History: Denies Medical/Surgical History Cardiovascular History: Reports: Aneurysm - Infectious Disease History Infectious Disease History: Reports: Chicken Pox - Past Surgical History Cardiovascular Surgical History: Reports: Aneurysm Social & Family History - Family History Family Medical History: Noncontributory - Caffeine Use Caffeine Use: Reports: Coffee, Energy Drinks, Soda, Tea Review of Systems - Review of Systems Review Of Systems: ROS reveals no pertinent complaints other than HPI. ED EXAM, GENERAL - Physical Exam Exam: See Below (See dictation) Course - Vital Signs Last Recorded V/S: Last Vital Signs Temp 96.3 F 12/01/18 12:16 Pulse 67 12/01/18 12:16 Resp 18 12/01/18 12:16 BP 101/54 L 12/01/18 12:16 Pulse Ox 100 12/01/18 12:16 - Orders/Labs/Meds Orders: Active Orders 24 hr Category Date Time Status Ankle Min 3V Lt [CR] Stat Exams 12/01/18 12:15 Taken Ankle Min 3V Rt [CR] Stat Exams 12/01/18 12:15 Taken Bacitracin [Bacitracin Oint 1 GM] Med 12/01/18 13:35 Once 1 dose TOP ONETIME ONE DME for Discharge [COMM] Stat Oth 12/01/18 13:03 Ordered Meds: Medications Discontinued Medications Generic Name Dose Route Start Last Admin Trade Name Freq PRN Reason Stop Dose Admin Hydrocodone Bitart/Acetaminophen 1 tab 12/01/18 13:03 [place] 325-5 Mg PO 12/01/18 13:04 ONETIME ONE Departure - Departure Time of Disposition: 13:10 Disposition: Home, Self-Care 01 Clinical Impression: Achilles tendon injury Qualifiers: Encounter type: initial encounter Laterality: right Qualified Code(s): S86.001A - Unspecified injury of right Achilles tendon, initial encounter - Discharge Information Referrals: PCP,Unknown [Primary Care Provider] - Forms: ED Department Discharge Additional Instructions: The following information is given to patients seen in the emergency department who are being discharged to home. This information is to outline your options for follow-up care. We provide all patients seen in our emergency department with a follow-up referral. The need for follow-up, as well as the timing and circumstances, are variable depending upon the specifics of your emergency department visit. If you don't have a primary care physician on staff, we will provide you with a referral. We always advise you to contact your personal physician following an emergency department visit to inform them of the circumstance of the visit and for follow-up with them and/or the need for any referrals to a consulting specialist. The emergency department will also refer you to a specialist when appropriate. This referral assures that you have the opportunity for follow-up care with a specialist. All of these measure are taken in an effort to provide you with optimal care, which includes your follow-up. Under all circumstances we always encourage you to contact your private physician who remains a resource for coordinating your care. When calling for follow-up care, please make the office aware that this follow-up is from your recent emergency room visit. If for any reason you are refused follow-up, please contact the [facility] Emergency Department at and asked to speak to the emergency department charge nurse. [facility] [address] [place] [id number] [facility] [address] [place] [id number] 1. Rest, ice, and elevate the lower extremities as able. Keep the splints on as we discussed. Limit your weight bearing as we discussed. 2. Tylenol and/or ibuprofen as needed for pain management. [place] for moderate to severe pain. This medication does cause drowsiness a do not take it will driving her needing to be functioning outside the house. Flexeril as a muscle relaxer, this also causes drowsiness a do not combine this with the [place] that has been prescribed. 3. Please follow-up with orthopedics on Monday. Return to the ED as needed and as discussed. - My Orders Last 24 Hours: My Active Orders 12/01/18 12:15 Ankle Min 3V Lt [CR] Stat Ankle Min 3V Rt [CR] Stat 12/01/18 13:03 DME for Discharge [COMM] Stat 12/01/18 13:35 Bacitracin [Bacitracin Oint 1 GM] 1 dose TOP ONETIME ONE - Assessment/Plan Last 24 Hours: My Active Orders 12/01/18 12:15 Ankle Min 3V Lt [CR] Stat Ankle Min 3V Rt [CR] Stat 12/01/18 13:03 DME for Discharge [COMM] Stat 12/01/18 13:35 Bacitracin [Bacitracin Oint 1 GM] 1 dose TOP ONETIME ONE
[2018-12-01] MEDS ORDERED: Acetaminophen/HYDROcodone 325-5 MG Tab PO ONE (13:03)
[2018-12-01] MEDS ORDERED: Bacitracin Oint 1 GM U/D Packet TOP ONE (13:35)
--- NOTE | 2018-12-01 15:45 | CR ---
Indication: Ankle pain. Technique: Three views of the right ankle were obtained. Comparison: None Findings: The ankle mortise is intact. The talar dome is intact. No acute fracture or subluxation is identified. Impression: Degenerative change, but no acute fracture. Dictated by Rachel Queen MD @ Dec 01 2018 12:40PM Signed by Dr. Rachel Queen @ Dec 01 2018 12:40PM
--- NOTE | 2018-12-01 15:45 | CR ---
Indication: Ankle pain. Technique: Three views of the left ankle were obtained. Comparison: None Findings: Ankle mortise is intact. The talar dome is intact. No acute fracture or subluxation is identified. Impression: No acute fracture. Dictated by Rachel Queen MD @ Dec 01 2018 12:39PM Signed by Dr. Rachel Queen @ Dec 01 2018 12:40PM
== END 2018-12-01 15:43 | disposition home or self-care (01) ==
LOC: MW.ED 12:08
DX: S86.001A Unspecified injury of right Achilles tendon, initial encounter (principal); S86.002A Unspecified injury of left Achilles tendon, initial encounter; S80.212A Abrasion, left knee, initial encounter; S80.211A Abrasion, right knee, initial encounter; W19.XXXA Unspecified fall, initial encounter
CPT/HCPCS: 29515; 73610; 99283; A9270

== ENCOUNTER 2018-12-10 06:49 | Day surgery (SDC) | payer BC ==
[~2018-12-10 06:49] MED LIST: Lactated Ringers 1,000 ML IV SCH
[2018-12-10] MEDS ORDERED: Midazolam 1 MG/ML 2 ML SDV ONE (07:32)
[2018-12-10] MEDS ORDERED: fentaNYL 100 MCG/2 ML SDV ONE ×2 (07:32→10:10)
[2018-12-10] MEDS ORDERED: Lidocaine 2% 5 ML SDV ONE (07:32)
[2018-12-10] MEDS ORDERED: Propofol 200 MG/20 ML SDV ONE (07:32)
[2018-12-10] MEDS ORDERED: Bupivacaine 0.25% 10 ML SDV ONE (07:34)
[2018-12-10] MEDS ORDERED: ceFAZolin 2 GM in Premix Bag 1 BAG IV SCH (08:00)
--- NOTE | 2018-12-10 08:01 | PCM.SN ---
- Free Text/Narrative Note: Anes prob list: benign positional vertigo PLAN: prone positioning, GET
--- NOTE | 2018-12-10 08:02 | PCM.PREANE ---
Preanesthetic Assessment - Anesthesia/Transfusion/Family Hx Anesthesia History: Prior Anesthesia Without Reaction Family History of Anesthesia Reaction: No Transfusion History: No Prior Transfusion(s) - Review of Systems General: No Symptoms Pulmonary: No Symptoms Cardiovascular: No Symptoms Gastrointestinal: No Symptoms Neurological: No Symptoms Other: Reports: None - Physical Assessment NPO Status Date: 12/09/18 NPO Status Time: 22:00 O2 Sat by Pulse Oximetry: 100 Respiratory Rate: 18 Vital Signs: Last Vital Signs Temp 97.9 F 12/10/18 07:15 Pulse 56 L 12/10/18 07:15 Resp 18 12/10/18 07:15 BP 140/82 12/10/18 07:15 Pulse Ox 100 12/10/18 07:15 Height: 5 ft 10 in Weight: 79.379 kg ASA Class: 2 Mental Status: Alert & Oriented x3 Airway Class: Mallampati = 2 Dentition: Reports: Normal Dentition ROM/Head Extension: Full Lungs: Clear to Auscultation, Normal Respiratory Effort Cardiovascular: Regular Rate, Regular Rhythm - Allergies Allergies/Adverse Reactions: Allergies Allergy/AdvReac Type Severity Reaction Status Date / Time No Known Allergies Allergy Verified 12/06/18 12:04 - Blood Blood Available: No - Anesthesia Plan Pre-Op Medication Ordered: None - Acknowledgements Anesthesia Type Planned: General Anesthesia Pt an Appropriate Candidate for the Planned Anesthesia: Yes Alternatives and Risks of Anesthesia Discussed w Pt/Guardian: Yes Pt/Guardian Understands and Agrees with Anesthesia Plan: Yes Additional Comments: anes prob list: benign positional vetrtigo PLAN: prone, GET PreAnesthesia Questionnaire - Past Health History Medical/Surgical History: Denies Medical/Surgical History HEENT History: Reports: Other (See Below) Other HEENT History: wears glasses/contacts, hx of fx nose Cardiovascular History: Reports: Aneurysm Other Cardiovascular History: hx of brain aneurysm- coiled- 2018 Neurological History: Reports: Cerebral Aneurysms Dermatologic History: Reports: Melanoma - Infectious Disease History Infectious Disease History: Reports: Chicken Pox - Past Surgical History Head Surgeries/Procedures: Reports: None Cardiovascular Surgical History: Reports: Aneurysm Neurological Surgical History: Reports: Intracranial Dermatological Surgical History: Reports: Skin Biopsy - SUBSTANCE USE Smoking Status *Q: Never Smoker Recreational Drug Use History: Yes Recreational Drug Type: Reports: Marijuana/Hashish - HOME MEDS Home Medications: Home Meds . [No Known Home Meds] 03/25/18 [History] - CURRENT (IN HOUSE) MEDS Current Meds: Current Medications Hydrocodone Bitart/Acetaminophen ([place] 325-5 Mg) 1 - 2 tab PO Q4H PRN PRN Reason: Pain Cefazolin Sodium/Dextrose 2 gm (/ Premix) 50 mls @ 100 mls/hr IV ONCALL ARISTIDES Lactated Ringer's (Ringers, Lactated) 1,000 mls @ 100 mls/hr IV ASDIRECTED ARISTIDES Discontinued Medications Bupivacaine HCl (Sensorcaine-Mpf 0.25%) Confirm Administered Dose 20 ml .ROUTE .STK-MED ONE Stop: 12/10/18 07:35 Fentanyl (Sublimaze) Confirm Administered Dose 100 mcg .ROUTE .STK-MED ONE Stop: 12/10/18 07:33 Lidocaine (Xylocaine-Mpf 2%) Confirm Administered Dose 5 ml .ROUTE .STK-MED ONE Stop: 12/10/18 07:33 Midazolam HCl (Versed 1 Mg/Ml) Confirm Administered Dose 2 mg .ROUTE .STK-MED ONE Stop: 12/10/18 07:33 Propofol (Diprivan 20 Ml) Confirm Administered Dose 200 mg .ROUTE .STK-MED ONE Stop: 12/10/18 07:33
[2018-12-10] MEDS ORDERED: Acetaminophen/HYDROcodone 325-5 MG Tab PO PRN (09:00)
[2018-12-10] MEDS ORDERED: ePHEDrine 50 MG/ML SDV ONE (09:24)
[2018-12-10] MEDS ORDERED: Sodium Chloride 0.9% 20 ML ONE (09:24)
[2018-12-10] MEDS ORDERED: Rocuronium 100 MG/10 ML MDV ONE (09:24)
[2018-12-10] MEDS ORDERED: ceFAZolin/Dextrose,Iso-Osmotic 2 GM/50 ML Duplex Bag IV ONE (09:24)
[2018-12-10] MEDS ORDERED: Ondansetron 4 MG/2 ML SDV ONE (09:38)
[2018-12-10] MEDS ORDERED: Dexamethasone 4 MG/ML 5 ML MDV ONE (09:38)
[2018-12-10] MEDS ORDERED: Neostigmine Methylsulfate 1 MG/ML 5 ML Syringe ONE (10:41)
[2018-12-10] MEDS ORDERED: Glycopyrrolate 0.2 MG/ML SDV ONE (10:41)
--- NOTE | 2018-12-10 11:10 | PCM.OPNOTE ---
- General Post-Op/Procedure Note Date of Surgery/Procedure: 12/10/18 Operative Procedure(s): B Achilles' tendon repair Post-Op Diagnosis: B Achilles tendon tear Anesthesia Technique: General ET Tube Primary Surgeon: Frances Cruz Airplane Rigger: Allyssa Armnado EBRadha in mLs: 5 Condition: Good Free Text/Narrative:: tt=46 min R, 32 min L #[id number]
[2018-12-10] MEDS ORDERED: HYDROmorphone 2 MG/ML SDV IVPUSH ONE (11:19)
[2018-12-10] MEDS ORDERED: HYDROmorphone 2 MG/ML Syringe ONE (11:24)
--- NOTE | 2018-12-10 12:22 | OR ---
SURGEON: Frances Cruz MD DATE OF PROCEDURE: 12/10/2018 PREOPERATIVE DIAGNOSIS: Bilateral Achilles tendon rupture. POSTOPERATIVE DIAGNOSIS: Bilateral Achilles tendon rupture, distal. PROCEDURE: Open repair of bilateral Achilles tendon. PRIMARY SURGEON: Frances Cruz MD. GLASS MECHANIC: WALTER Kim. ANESTHESIA: General. ESTIMATED BLOOD LOSS: 5 mL. TOURNIQUET TIME: 46 minutes on the right and 32 minutes on the left. COMPLICATIONS: None. DVT PROPHYLAXIS: None indicated. IMPLANTS USED: Two Arthrex 4.75 mm SwiveLock anchors and one Arthrex 4.5 mm Corkscrew anchor. BRIEF HISTORY: Michel is a 58-year-old male, who sustained bilateral Achilles fracture after running a half marathon. He did have an MRI, which did confirm this finding. We discussed both conservative and surgical treatment option. Due to his activity level, I did recommend surgical intervention. The risks and goals of the procedure were discussed with the patient and were documented preoperatively. He agreed to proceed. DESCRIPTION OF PROCEDURE: The patient was properly identified and brought to the operating room. General anesthesia was administered on the OR cart. After adequate anesthesia was obtained, bilateral tourniquets were applied. He was then turned onto the operating room table and placed in a prone position. Chest rolls were used to allow the abdominal contents to hang free. His arms were padded. Bilateral lower extremities were then prepped in standard fashion using ChloraPrep solution. It was then sterilely draped. A time-out was performed to ensure correct site and procedure. Preoperative antibiotics were given. The surgical site was not marked due to the bilateral nature of the procedure. The right lower extremity was addressed first. An Esmarch was used to exsanguinate the right lower extremity and the tourniquet was inflated to 250 mmHg. An incision was made over the posterior aspect of the heel and low leg. There was a palpable defect at the site of the tear. Subcutaneous tissues were incised sharply. The Achilles tendon rupture was immediately evident. The wound was then copiously irrigated with saline solution. The Achilles tendon did show some mild thickening distally. There was a small portion of the tendon remaining attached to the calcaneus. The remainder of the tendon had pulled from the calcaneus. The insertion site was inspected. A rongeur was used to clear the bony tissue and create a good bleeding bone bed. #2 FiberWire was then passed through the proximal fragment in a Krackow stitch fashion. Since there was minimal distal tendon to attach the tendon to, I elected to proceed with a bony repair. The suture limbs from the proximal tendon were passed through a SwiveLock anchor. A 3.2 mm drill bit was used to drill a hole into the calcaneus. A SwiveLock anchor was then placed into this site. This provided good reapproximation of the Achilles tendon. The remainder of the Achilles tendon was quite robust. There was some gapping laterally, and I elected to proceed with placement of a 4.5 mm Corkscrew anchor. An awl and a tap were used to prepare the site and the Corkscrew anchor was placed without difficulty. It had good purchase within the bone. The free suture ends were then attached to a free needle and were reapproximated into the Achilles tendon. As these were tied, this gave additional support to the Achilles tendon and allowed it to be pulled flush with the bone. 0 Vicryl was used to oversew the remaining Achilles tendon over this to help augment the repair. The ankle was then taken through a range of motion. I was able to get him to neutral dorsiflexion without undue tension on the repair. The wound was then copiously irrigated with saline solution. The paratenon was not present over the distal portion of the tendon. I was able to reapproximate the deep tissues over this with #2 Vicryl. The subcutaneous tissues were closed with 2-0 Monocryl and the skin was closed with gunner. The tourniquet was deflated prior to final wound closure and no excess bleeding was noted. Xeroform gauze was placed over the wound and a bulky dressing was applied. This was then covered. I then turned my attention to the left Achilles. Esmarch was used to exsanguinate the left lower extremity and the tourniquet was inflated to 250 mmHg. An incision was made over the posterior aspect of the ankle, centered over the site of the gap. The gap was palpated quite distal, near the insertion onto the calcaneus. Skin and subcutaneous tissues were incised. Again, the rupture was immediately evident. This side did show complete rupture of the Achilles from the calcaneus. There was very little remaining fibers of the Achilles on the calcaneus. The calcaneus was again roughened with a rongeur to allow a good bleeding bone surface at the insertion site. The wound was then copiously irrigated with saline solution to remove any hematoma. The distal portion of the Achilles was quite thickened. I did trim some of this to debulk the tendon slightly. This did not appear to damage the structural integrity of the tendon. An Allis clamp was then used to reapproximate the tendon to the calcaneus and it easily was reapproximated. Two #2 FiberWire were then placed through the proximal Achilles in a Krackow stitch fashion. The 4 suture limbs from the proximal portion of the Achilles was then passed through a 4.75 mm SwiveLock anchor. The center of the calcaneus was then noted and a 3.5 mm drill bit was used to drill the hole. The SwiveLock anchor was then inserted. With tension on the suture limbs, the tendon was able to be easily reapproximated to the calcaneus as the SwiveLock was inserted. The repair was then inspected. The repair appeared to be flushed to the Achilles. The ankle was taken through range of motion. I was able to get the ankle to a neutral position without undue tension on the repair. The wound was then copiously irrigated with saline solution. The distal remnants of the Achilles were oversewn onto the repaired Achilles. The distal portion of the Achilles did not appear to have a good paratenon as well. The deep tissues were closed over the Achilles tendon without tension. The tourniquet was then deflated. No excess bleeding was noted. 2-0 Monocryl was used to close the subcutaneous tissues and the skin was closed with gunner. Xeroform gauze was placed over the wound and a bulky dressing was applied. Well-padded posterior splints keeping the ankle in slight plantar flexion were applied to both lower extremities. The patient was then awakened from his anesthetic and transferred back to the operating room cart. He was brought to recovery room in stable condition. All needle and sponge counts were correct. YOVANA / FRANCISCO JAVIER /[id number]
--- NOTE | 2018-12-10 12:34 | PCM48HPAN ---
Post Anesthesia Note - EVALUATION WITHIN 48HRS OF ANESTHETIC Vital Signs in Normal Range: Yes Patient Participated in Evaluation: Yes Respiratory Function Stable: Yes Airway Patent: Yes Cardiovascular Function Stable: Yes Hydration Status Stable: Yes Pain Control Satisfactory: Yes Nausea and Vomiting Control Satisfactory: Yes Mental Status Recovered: Yes Resp Rate: 16
--- NOTE | 2018-12-10 12:34 | PCM.POSTAN ---
POST ANESTHESIA ASSESSMENT - MENTAL STATUS Mental Status: Alert, Oriented - RESPIRATORY Respiratory Status: Respiratory Rate WNL, Airway Patent, O2 Saturation Stable - CARDIOVASCULAR CV Status: Pulse Rate WNL, Blood Pressure Stable - GASTROINTESTINAL GI Status: No Symptoms - POST OP HYDRATION Hydration Status: Adequate & Stable
[2018-12-10] MEDS ORDERED: Apixaban 2.5 MG Tab PO ONE (18:00)
== END 2018-12-10 12:55 | disposition home or self-care (01) ==
LOC: MW.SDS 06:49
PROVIDERS: ATTEND Orthopaedic Surgery
DX: S86.012A Strain of left Achilles tendon, initial encounter (principal); S86.011A Strain of right Achilles tendon, initial encounter; H81.10 Benign paroxysmal vertigo, unspecified ear; H90.5 Unspecified sensorineural hearing loss; F17.210 Nicotine dependence, cigarettes, uncomplicated; X58.XXXA Exposure to other specified factors, initial encounter; Y93.02 Activity, running
CPT/HCPCS: 27650; C1713; J0131; J0690; J1100; J1170; J2001; J2250; J2405; J2704; J3010; J3490; J7120; 88304